=== PATIENT | male | born 1985 | race Caucasian/White ===

== ENCOUNTER 2019-07-14 08:04 | Emergency (ER) | payer BC ==
[2019-07-14 08:21] VITALS: BP 140/111; PULSE 88
[2019-07-14] MEDS ORDERED: Lidocaine 2% Viscous Solution 15 ML Cup PO ONE (08:32)
--- NOTE | 2019-07-14 08:35 | EDM.PDOC ---
Scribed by María Rob 07/14/19 0835 for Ari Garcia NP ED HPI GENERAL MEDICAL PROBLEM - General Chief Complaint: ENT Problem Stated Complaint: TOOTHACHE Time Seen by Provider: 07/14/19 08:16 Source of Information: Reports: Patient, RN, RN Notes Reviewed History Limitations: Reports: No Limitations - History of Present Illness INITIAL COMMENTS - FREE TEXT/NARRATIVE: Patient presents to ER with complaints of dental pain. He was seen in the ER 2 days ago for complaints of the same and given antibiotics and anti- inflammatory. He was suppose to go to the dentist but he is scared. He states that he has always been treated with antibiotics and the pain resolved. At this time he would like a dental block. He denies any fevers, chills, shortness of breath, chest pain, drainage and inability to eat. He has been taking the medications as prescribed. Onset: Gradual Duration: Getting Worse Location: Reports: Other (tooth) Quality: Reports: Ache Severity: Mild Improves with: Reports: None Worsens with: Reports: None Associated Symptoms: Reports: No Other Symptoms Left Jaw Pain Score (Numeric/FACES): 10 - Related Data Allergies Allergy/AdvReac Type Severity Reaction Status Date / Time No Known Allergies Allergy Verified 10/25/15 12:14 Home Meds: Home Meds Amoxicillin/Clavulanate K [Augmentin 875-125 MG] 1 tab PO BID 07/14/19 [History] Past Medical History - Past Health History Medical/Surgical History: Denies Medical/Surgical History ED ROS ENT - Review of Systems Review Of Systems: Comprehensive ROS is negative, except as noted in HPI. ED EXAM, ENT - Physical Exam Exam: See Below Exam Limited By: No Limitations General Appearance: Alert, WD/WN, Moderate Distress Ears: Normal External Exam, Normal Canal, Hearing Grossly Normal, Normal TMs Nose: Normal Inspection, Normal Mucousa, No Blood Mouth/Throat: Dental Pain, Dental Tenderness, Other (decayed upper and lower molars with cavities. ) Head: Atraumatic, Normocephalic Neck: Normal Inspection, Supple, Non-Tender, Full Range of Motion Respiratory/Chest: No Respiratory Distress, Lungs Clear, Normal Breath Sounds, No Accessory Muscle Use, Chest Non-Tender Cardiovascular: Normal Peripheral Pulses, Regular Rate, Rhythm, No Edema, No Gallop, No JVD, No Murmur, No Rub (Male) Exam: Deferred Rectal (Males) Exam: Deferred Neurological: Alert, Oriented Psychiatric: Anxious Skin: Warm Lymphatic: No Adenopathy Course - Vital Signs Last Recorded V/S: Last Vital Signs Temp 97.2 F 07/14/19 08:06 Pulse 88 07/14/19 08:06 Resp 20 07/14/19 08:06 BP 140/111 H 07/14/19 08:06 Pulse Ox 99 07/14/19 08:06 - Orders/Labs/Meds Meds: Medications Discontinued Medications Generic Name Dose Route Start Last Admin Trade Name Leesa PRN Reason Stop Dose Admin Lidocaine HCl 15 ml 07/14/19 08:32 Xylocaine 2% Viscous PO 07/14/19 08:33 ONETIME ONE - Re-Assessments/Exams Free Text/Narrative Re-Assessment/Exam: Reviewed above findings with the patient. Discussed Viscus Lidocaine and administered. Encourage patient to follow up with dentist. Departure - Departure Time of Disposition: 08:31 Disposition: Home, Self-Care 01 Condition: Good Clinical Impression: Dental caries, Pain, dental - Discharge Information Instructions: Acute Pain, Adult Forms: ED Department Discharge Additional Instructions: Continue to brush teeth. Continue antibiotics and anti-inflammatory as prescribed. Use the Viscus Lidocaine. Follow up with dentist. Sepsis Event Note - Focused Exam Vital Signs: Vital Signs Temp Pulse Resp BP Pulse Ox 07/14/19 08:06 97.2 F 88 20 140/111 H 99 Date Exam was Performed: 07/14/19 Time Exam was Performed: 08:35 I have read and agree with the documentation that has been completed regarding this visit. By signing this record, I attest that the documentation was completed in my physical presence and is an accurate record of the encounter.
== END 2019-07-14 09:00 | disposition home or self-care (01) ==
LOC: DL.ED 08:04
DX: K02.9 Dental caries, unspecified (principal)
CPT/HCPCS: 99282; 99283; A9270

== ENCOUNTER 2021-06-15 14:37 | Emergency (ER) | payer BC ==
[2021-06-15 16:16] VITALS: BP 156/103; PULSE 108
== END 2021-06-15 17:46 | disposition home or self-care (01) ==
LOC: DL.ED 14:37
DX: K04.7 Periapical abscess without sinus (principal); K02.9 Dental caries, unspecified; K00.7 Teething syndrome; Z72.0 Tobacco use
CPT/HCPCS: 99283

== ENCOUNTER 2022-03-05 01:17 | Emergency (ER) | payer BC, MEDICAID ==
[2022-03-05] MEDS ORDERED: MVI, Adult with Vitamin K 10 ML, Folic Acid 1 MG, Thiamine 100 MG in Lactated Ringers 1... IV ONE ×4 (01:31)
[2022-03-05 02:04] LABS: ANION GAP 12.3 mEq/L (7-13); CHLORIDE,CL 102 mmol/L (98-107); SODIUM,NA 141 mmol/L (136-145)
[2022-03-05 02:05] LABS: ACETAMINOPHEN 0 ug/mL (10-30 (Therapeutic)); ESTIMATED GFR 76 mL/min (>=60)
[2022-03-05] MEDS ORDERED: Sodium Chloride 0.9% 1,000 ML IV ONE (02:20)
[2022-03-05 02:31] LABS: AMPHETAMINES,URINE NEGATIVE (NEGATIVE); BARBITURATES,URINE NEGATIVE (NEGATIVE); BENZODIAZEPINE,URINE NEGATIVE (NEGATIVE); MDMA (ECSTASY), URINE NEGATIVE (NEGATIVE); METHADONE,URINE NEGATIVE (NEGATIVE); METHAMPHETAMINES,URINE NEGATIVE (NEGATIVE); OPIATES,URINE NEGATIVE (NEGATIVE); OXYCODONE,URINE NEGATIVE (NEGATIVE); PHENCYCLIDINE,URINE NEGATIVE (NEGATIVE); TCA,URINE NEGATIVE (NEGATIVE)
[2022-03-05 02:57] VITALS: BP 144/95; PULSE 79
== END 2022-03-05 03:05 ==
LOC: DL.ED 01:17
DX: F10.10 Alcohol abuse, uncomplicated (principal); E86.0 Dehydration
CPT/HCPCS: 36415; 80053; 80143; 80179; 80305; 80307; 81001; 85025; 96361; 96365; 99284; J3411; J7030; J7120; J3490